=== PATIENT | female | born 1935 | race Caucasian/White ===

== ENCOUNTER 2018-04-22 09:39 | Inpatient (IN) ==
[2018-04-22] MEDS ORDERED: 0.9 % Sodium Chloride 1,000 ML IVC ONE (09:46)
[2018-04-22 09:53] LABS: Hematocrit 43.9 % (35.3-44.9); Hemoglobin 15.2 g/dL (11.5-15.4); Mean Corpuscular HGB Conc 34.6 g/dL (31.6-35.5); Mean Corpuscular Hemoglobin 31.3 pg (28.0-33.3); Mean Corpuscular Volume 90.3 fL (83.0-100.0); Mean Platelet Volume 9.4 fL (9.4-12.4); Platelet Count 289 K/mcL (140-400); Red Blood Count 4.86 M/mcL (3.82-4.97); Red Cell Distribution Width 12.8 % (11.5-14.5)
--- NOTE | 2018-04-22 09:55 | Emergency Department Note ---
Disposition Clinical Impression: Hyponatremia, Seizure-like activity Disposition: Admitted As Inpatient Condition: Fair Time of Disposition: 12:22 General Adult HPI - General Chief complaint: ED Neuro Symptoms/Deficit Stated complaint: poss stroke alert Time Seen by Provider: 04/22/18 09:45 Source: family (Son) Limitations: altered mental status Nursing Notes Reviewed: Yes Vital Signs Reviewed: Yes - History of Present Illness HPI Narrative: 83-year-old female history of hypertension and prior breast cancer in 1972 with left mastectomy presenting to the emergency department after a unresponsive episode. History is obtained by the son who is questioned after initial evaluation. Patient presented to the trauma resuscitation room 2 due to unresponsive with left side flaccid paralysis and only following commands on the right. Stroke alert was initiated at that time. She did not have any gaze deviation. It was noted that she has some urinary incontinence with a laceration to her left lower lip. Within a few minutes she became more lucid moving all for extremities with purpose. She was saying the words couch and was able to answer questions and tell us her name. Her oxygen saturations remain 100%. Her blood pressure was 173/140. After further questioning with the son he reports that she had a fall 2 weeks ago it was here at [facility] for outpatient x-rays of her back with blood work after fasting. They went to [employer] for food while in the car, the son reported that she went unresponsive. This occurred 15 minutes prior to arrival, estimated 0930. He noticed foaming at the mouth and some shaking/tremors. She presents here afterwards. No history of reported seizures or CVA. Pain Scale: 0 - Related Data Home Medications Medication Instructions Recorded Confirmed Aspirin [Lo-Dose Aspirin EC] 81 mg PO DAILY 08/06/16 03/17/17 Levothyroxine [Synthroid] 100 mcg PO DAILY 08/06/16 03/17/17 Lisinopril [Zestril] 20 mg PO BID 08/06/16 03/17/17 Nadolol 20 mg PO DAILY 08/06/16 03/17/17 Nitroglycerin [Nitrostat] 0.4 mg SL PRN PRN 08/06/16 03/17/17 Oxybutynin [Ditropan] 5 mg PO BID 08/06/16 03/17/17 Potassium Chloride [K-Tab ER] 20 meq PO DAILY 08/06/16 03/17/17 Ranitidine HCl [Heartburn Relief] 150 mg PO DAILY 08/06/16 02/21/17 Simvastatin [Zocor] 40 mg PO HS 08/06/16 03/17/17 Sertraline [Zoloft] 50 mg PO DAILY 12/08/16 03/17/17 Calcium Citrate/Vitamin D3 1 each PO DAILY 03/17/17 03/17/17 [Calcium Citrate - Vit D Caplet] Cholecalciferol (Vitamin D3) 5,000 unit PO DAILY 03/17/17 03/17/17 [Vitamin D3] Cyanocobalamin (Vitamin B-12) 1,500 mcg PO DAILY 03/17/17 03/17/17 [Vitamin B-12] Loratadine [Allergy Relief] 10 mg PO DAILY 03/17/17 03/17/17 Pantoprazole Sodium [Protonix] 40 mg PO DAILY 03/17/17 03/17/17 Allergies Allergy/AdvReac Type Severity Reaction Status Date / Time acetaminophen Allergy Rash Verified 03/17/17 16:54 Amoxicillin Allergy Rash Verified 03/17/17 16:54 citalopram [From Celexa] Allergy See Verified 03/17/17 16:54 Comments codeine Allergy Rash Verified 03/17/17 16:54 NSAIDS (Non-Steroidal Allergy Rash Verified 03/17/17 16:54 Anti-Inflamma Oxycodone Allergy Rash Verified 03/17/17 16:54 Penicillins Allergy Hives Verified 03/17/17 16:54 piroxicam Allergy Rash Verified 03/17/17 16:54 propoxyphene Allergy Rash Verified 03/17/17 16:54 [From Darvocet-N] salicylates Allergy Rash Verified 03/17/17 16:54 Limitations: ROS unobtainable due to patients medical condition Past Medical History - Past Medical History Source: old records reviewed, obtained from family Medical history: Reports: cancer, coronary artery disease, diabetes, h yperlipidemia, hypertension, renal disease, seizures, thyroid disease Surgical history: Reports: orthopedic, other, other (Cardiac catheterization November 2013 showing mild coronary artery disease with ejection fraction of 60%.) Psychiatric history: Reports: anxiety, depression - Social History Smoking Status: Unknown if ever smoked Smokeless Tobacco Status: No Alcohol use: Reports: unknown Drug use: Reports: unknown Physical Exam - General Limitations: altered mental status General appearance: other - Head Head exam: atraumatic, normocephalic, normal inspection - Eye Eye exam: Present: normal appearance, PERRL, EOMI, other (No gaze deviation). Absent: nystagmus, miosis, mydriasis - ENT ENT exam: normal oropharynx, mucous membranes dry - Expanded ENT Exam External ear exam: Present: normal external inspection Mouth exam: Present: tongue normal, laceration (Lower lip superficial laceration). Absent: lip swelling, tounge swelling Teeth exam: Present: normal inspection - Neck Neck exam: Present: normal inspection, full ROM, trachea midline - Chest Chest inspection: Present: symmetric chest wall rise, other (Left mastectomy) - Respiratory Respiratory exam: Present: normal lung sounds bilaterally. Absent: respiratory distress - Cardiovascular Cardiovascular exam: Present: regular rate, normal rhythm, normal heart sounds - Expanded Cardiovascular Exam Peripheral pulses: 2+: radial (R), radial (L) - Abdominal Exam Abdominal exam: Present: soft, Non-Tender. Absent: tenderness, distention, guarding, rebound, rigidity - Extremities Exam Extremities exam: Present: other (No obvious deformities, initially there was only movement to the right upper and right lower extremities, there was no visible tonic clonic movements, she follow commands only on the right side initially) - Skin Skin exam: Present: warm, dry, intact, normal color Course Course Narrative: Patient initially presented with left-sided weakness. Initial report was patient was normal prior to arrival they would unresponsive. Concern for possible stroke, stroke alert initiated. Initial glucose was 132. She had urinary incontinence and lower lip laceration. Concern for possible seizure versus stroke. Her initial NIH score was elevated at approximately 25 she was only moving the right side of her body. Patient was then sent to CT scan after blood glucose level checked, EKG and IV access obtained. - Reevaluation(s) Reevaluation #1: Upon return to the emergency department examination room she is now awake alert and oriented person place and time she recognizes her son she moves all for extremities without any obvious drift her NIH score is 0. Suspect likely more seizure versus stroke given the history obtained by the son. She is not a TPA c andidate at this time as she is likely more seizure and rapid resolution of NIH. CT scan of the head did not reveal any intracranial hemorrhage. CT of the neck did not reveal fracture. There is incidental right thyroid nodule. Patient reports a history of thyroid surgery and is currently on Synthroid. She was made aware of this incidental finding. Reevaluation #2: Patient's sodium is 129 this appears chronic however this is the lowest it has been. Labs otherwise unremarkable. She does report a prior history is a seizure like activity but does not take seizure medications. Will bolus with Keppra 1g and discuss with NEUROLOGY for seizure like activity. Time: 12:03 - Consultations Consultation #1: Spoke with Dr. Tellez radiologist, no hemorrhage Time: 10:14 Consultation #2: Spoke with [facility] Dr. Adams, discussed the patient's case presentation and they are in agreement this is likely more of seizure. At this time we have canceled the stroke alert at 1024. Time: 10:21 Consultation #3: Spoke with the on-call neurologist Dr. Santos, who requests obtain a EEG once admitted to the floor and obtaining MRI with and without. Recommended continue 500 mg Keppra BID. Time: 12:10 Additional Consultation(s): Spoke with on-call hospitalist Dr. Chua, ok to admit for new onset seizure and hyponatremia. No further orders at this time Vital Signs Temperature 98.7 F 04/22/18 09:42 Pulse Rate 92 04/22/18 09:42 Respiratory Rate 18 04/22/18 09:42 Blood Pressure 173/137 04/22/18 09:42 O2 Sat by Pulse Oximetry 97 04/22/18 09:42 Temperature 98.7 F 04/22/18 09:42 Pulse Rate 75 04/22/18 11:18 Respiratory Rate 18 04/22/18 11:18 Blood Pressure 153/76 04/22/18 11:18 O2 Sat by Pulse Oximetry 96 04/22/18 11:18 Oxygen Delivery Oxygen Delivery Room Air Medical Decision Making - MDM Narrative Medical decision making narrative: Patient was discussed with my attending physician who agrees with ED management and final disposition. They independently evaluated the patient. Please refer to their attestation to this encounter for additional information. This note was generated by yeppt voice recognition software and as a result grammatical or spelling errors may occur using this program. - Medical Records Medical records reviewed: Yes I reviewed the patient's medical records. - Lab Data Lab results reviewed: Yes I reviewed the patient's lab results. Result diagrams: 04/22/18 09:45 04/22/18 09:45 Lab Results 04/22/18 04/22/18 04/22/18 Range/Units 09:42 09:45 09:45 WBC 9.4 D (4.3-11.1) K/mcL RBC 4.86 (3.82-4.97) M/mcL Hgb 15.2 (11.5-15.4) g/dL Hct 43.9 (35.3-44.9) % MCV 90.3 (83.0-100.0) fL MCH 31.3 (28.0-33.3) pg MCHC 34.6 (31.6-35.5) g/dL RDW 12.8 (11.5-14.5) % Plt Count 289 (140-400) K/mcL MPV 9.4 (9.4-12.4) fL PT 10.9 (9.4-12.1) Seconds INR 1.0 APTT 30.3 (26.0-36.0) Seconds Sodium (136-145) mEq/L Potassium (3.5-5.1) mEq/L Chloride (98-107) mEq/L Carbon Dioxide (23-29) mEq/L BUN (8-23) mg/dL Creatinine (0.60-1.20) mg/dL Est GFR ( Amer) (> 60) Est GFR (Non-Af Amer) (> 60) BUN/Creatinine Ratio (6-26) Glucose (70-105) mg/dL POC Glucose 166 H (70-99) mg/dL Calculated Osmolality (280-300) Calcium (8.6-10.3) mg/dL Venous Ioniz Calcium (1.15-1.35) mmol/L Magnesium (1.6-2.6) mg/dL Troponin I (< 0.04) ng/mL TSH (0.340-5.600) mcIU/mL Urine Color (Yellow) Urine Clarity (Clear) Urine pH (5.0-8.0) pH Units Ur Specific [place] (1.010-1.025) Urine Protein (Neg-Trace) mg/dL Urine Glucose (UA) (Normal) mg/dL Urine Ketones (Negative) mg/dL Urine Blood (Negative) Urine Nitrite (Negative) Urine Bilirubin (Negative) Urine Urobilinogen (Normal) mg/dL Ur Leukocyte Esterase (Negative) Urine Microscopic RBC (0-3) per hpf Urine Microscopic WBC (0-3) per hpf Ur Squamous Epith Cells (None-Few) per lpf Urine Bacteria (None-Few) per hpf Hyaline Casts (None-Few) per lpf Ur Culture Indicated? (NO) 04/22/18 04/22/18 04/22/18 Range/Units 09:45 10:44 11:02 WBC (4.3-11.1) K/mcL RBC (3.82-4.97) M/mcL Hgb (11.5-15.4) g/dL Hct (35.3-44.9) % MCV (83.0-100.0) fL MCH (28.0-33.3) pg MCHC (31.6-35.5) g/dL RDW (11.5-14.5) % Plt Count (140-400) K/mcL MPV (9.4-12.4) fL PT (9.4-12.1) Seconds INR APTT (26.0-36.0) Seconds Sodium 129 L (136-145) mEq/L Potassium 3.8 (3.5-5.1) mEq/L Chloride 94 L (98-107) mEq/L Carbon Dioxide 17 L (23-29) mEq/L BUN 13 (8-23) mg/dL Creatinine 0.95 (0.60-1.20) mg/dL Est GFR ( Amer) > 60 (> 60) Est GFR (Non-Af Amer) 56 L (> 60) BUN/Creatinine Ratio 14 (6-26) Glucose 162 H (70-105) mg/dL POC Glucose (70-99) mg/dL Calculated Osmolality 272 L (280-300) Calcium 9.1 (8.6-10.3) mg/dL Venous Ioniz Calcium 1.05 L (1.15-1.35) mmol/L Magnesium 1.9 (1.6-2.6) mg/dL Troponin I < 0.03 (< 0.04) ng/mL TSH 3.399 (0.340-5.600) mcIU/mL Urine Color Yellow (Yellow) Urine Clarity Clear (Clear) Urine pH 7.5 (5.0-8.0) pH Units Ur Specific [place] 1.008 L (1.010-1.025) Urine Protein 30 H (Neg-Trace) mg/dL Urine Glucose (UA) 100 H (Normal) mg/dL Urine Ketones Negative (Negative) mg/dL Urine Blood Negative (Negative) Urine Nitrite Negative (Negative) Urine Bilirubin Negative (Negative) Urine Urobilinogen Normal (Normal) mg/dL Ur Leukocyte Esterase Negative (Negative) Urine Microscopic RBC 0-3 (0-3) per hpf Urine Microscopic WBC 0-3 (0-3) per hpf Ur Squamous Epith Cells Few (None-Few) per lpf Urine Bacteria None Seen (None-Few) per hpf Hyaline Casts None Seen (None-Few) per lpf Ur Culture Indicated? NO (NO) - Radiology Data Radiology results reviewed: Yes I reviewed the patient's radiology results. Head CTA 04/22/18 10:13 IMPRESSION: Mild, less than 50%, stenosis of the internal carotid arteries by NASCET criteria. No intracranial flow-limiting stenosis or aneurysm. Consider thyroid for evaluation if clinically warranted, a patient's age. RECOMMENDATIONS: 1.6 cm incidental thyroid nodule Recommend thyroid US if clinically warranted given patient age. Reference: J Am Trung Radiol. 2014;12(2): 143-50 D/ /22/2018 11:53:40 Sudheer Ascencio MD / ana m Interpreting Provider: Sudheer Ascencio MD Neck CTA 04/22/18 10:13 IMPRESSION: Mild, less than 50%, stenosis of the internal carotid arteries by NASCET criteria. No intracranial flow-limiting stenosis or aneurysm. Consider thyroid for evaluation if clinically warranted, a patient's age. RECOMMENDATIONS: 1.6 cm incidental thyroid nodule Recommend thyroid US if clinically warranted given patient age. Reference: J Am Trung Radiol. 2014;12(2): 143-50 D/ 04/22/2018 11:53:40 Sudheer Ascencio MD / ana m Interpreting Provider: Sudheer Ascencio MD Chest X-Ray 04/22/18 09:46 IMPRESSION: Bibasilar atelectasis. D/ / Yelena Ascencio MD / Yelena Ascencio MD Interpreting Provider: Yelena Ascencio MD Head CT 04/22/18 09:46 IMPRESSION: No acute intracranial abnormality. Moderate cerebral atrophy appropriate for age. [id number] chronic ischemic changes also age-appropriate. No significant change from the prior study. D/ / Ermias Jurado MD / Ermias Jurado MD Interpreting Provider: Ermias Jurado MD Cervical Spine CT 04/22/18 09:47 IMPRESSION: No acute abnormality of the cervical spine. Multilevel degenerative changes to the cervical spine. Diffuse bone demineralization. Right thyroid nodule measuring 1.8 x 1.5 cm. Recommend ultrasound evaluation on a nonemergent basis. D/ / 04/22/2018 10:37:39 Ham Babb MD / ana m Interpreting Provider: Ham Babb MD - EKG Data EKG #1 EKG attestation: Yes I reviewed and interpreted this EKG. EKG results narrative: EKG performed 0948 normal sinus rhythm 91 beats per minute, normal axis, good R wave progression, no ST elevation or depression, NH interval appears slightly vomited 215, no drop beats, inverted T-wave in a VL, compared to prior EKG performed 03/17/2017 shows similar consistent findings no acute ischemic changes. Attestation Statement - Attestation Attestation: I, Chandrakant Doshi DO, examined this patient [id number] and my medical dec ision-making was reviewed with Ham Delacruz DO Resident Physician. I agree with the documented findings, disposition and treatment plan as described except to the extent set forth below. Please see my progress notes for details. NIH Stroke Scale - Level of Consciousness LOC: Stuporous - LOC Questions LOC Questions: Answers both incorrectly - LOC Commands LOC Commands: Performs both incorrectly - Best Gaze Best Gaze: Normal - Visual Visual: No visual loss - Facial Palsy Facial Palsy: Normal - Motor Arms Motor Arm-Left: No movement Motor Arm-Right: Some effort against gravity, limb drifts to bed - Motor Legs Motor Leg-Left: Some effort against gravity, limb drifts to bed Motor Leg-Right: No movement - Limb Ataxia Limb Ataxia: Absent of affected limb too weak to perform exam - Sensory Sensory: Severe loss. Total sensory loss, pt unaware of being touched - Best Language Best Language: Mute, no usable speech - Dysarthria Dysarthria: UN Intubated or other physical barrier (explain) (Patient unresponsive) - Extinction and Inattention Extinction and Inattention: Profound anthony-inattention or anthony-attention in >ONE modality. - NIHSS Total Score NIHSS Total Score: 25
[2018-04-22 10:02] LABS: Prothrombin Time 10.9 Seconds (9.4-12.1)
[2018-04-22 10:04] LABS: Activated Partial Thrombo Time 30.3 Seconds (26.0-36.0)
[2018-04-22 10:12] LABS: BUN/Creatinine Ratio 14 (6-26); Blood Urea Nitrogen 13 mg/dL (8-23); Calcium 9.1 mg/dL (8.6-10.3); Carbon Dioxide 17 mEq/L (23-29); Chloride 94 mEq/L (98-107); Glucose 162 mg/dL (70-105); Magnesium 1.9 mg/dL (1.6-2.6); Osmolality,Calculated 272 (280-300); Potassium 3.8 mEq/L (3.5-5.1); Sodium 129 mEq/L (136-145); Troponin I < 0.03 ng/mL (< 0.04); eGFR For Non-African Americans 56 (> 60)
[2018-04-22] MEDS ORDERED: Isovue-370 500 ML INFUS..BTL IV ONE (10:13)
--- NOTE | 2018-04-22 10:15 | Emergency Department Note ---
Disposition Clinical Impression: Hyponatremia, Seizure-like activity Disposition: Admitted As Inpatient Condition: Fair Time of Disposition: 12:32 General Adult HPI - General Chief complaint: ED Neuro Symptoms/Deficit Stated complaint: poss stroke alert Time Seen by Provider: 04/22/18 09:45 Source: family (Son) Limitations: altered mental status - History of Present Illness Pain Scale: 0 - Related Data Home Medications Medication Instructions Recorded Confirmed Aspirin [Lo-Dose Aspirin EC] 81 mg PO DAILY 08/06/16 03/17/17 Levothyroxine [Synthroid] 100 mcg PO DAILY 08/06/16 03/17/17 Lisinopril [Zestril] 20 mg PO BID 08/06/16 03/17/17 Nadolol 20 mg PO DAILY 08/06/16 03/17/17 Nitroglycerin [Nitrostat] 0.4 mg SL PRN PRN 08/06/16 03/17/17 Oxybutynin [Ditropan] 5 mg PO BID 08/06/16 03/17/17 Potassium Chloride [K-Tab ER] 20 meq PO DAILY 08/06/16 03/17/17 Ranitidine HCl [Heartburn Relief] 150 mg PO DAILY 08/06/16 02/21/17 Simvastatin [Zocor] 40 mg PO HS 08/06/16 03/17/17 Sertraline [Zoloft] 50 mg PO DAILY 12/08/16 03/17/17 Calcium Citrate/Vitamin D3 1 each PO DAILY 03/17/17 03/17/17 [Calcium Citrate - Vit D Caplet] Cholecalciferol (Vitamin D3) 5,000 unit PO DAILY 03/17/17 03/17/17 [Vitamin D3] Cyanocobalamin (Vitamin B-12) 1,500 mcg PO DAILY 03/17/17 03/17/17 [Vitamin B-12] Loratadine [Allergy Relief] 10 mg PO DAILY 03/17/17 03/17/17 Pantoprazole Sodium [Protonix] 40 mg PO DAILY 03/17/17 03/17/17 Allergies Allergy/AdvReac Type Severity Reaction Status Date / Time acetaminophen Allergy Rash Verified 03/17/17 16:54 Amoxicillin Allergy Rash Verified 03/17/17 16:54 citalopram [From Celexa] Allergy See Verified 03/17/17 16:54 Comments codeine Allergy Rash Verified 03/17/17 16:54 NSAIDS (Non-Steroidal Allergy Rash Verified 03/17/17 16:54 Anti-Inflamma Oxycodone Allergy Rash Verified 03/17/17 16:54 Penicillins Allergy Hives Verified 03/17/17 16:54 piroxicam Allergy Rash Verified 03/17/17 16:54 propoxyphene Allergy Rash Verified 03/17/17 16:54 [From Darvocet-N] salicylates Allergy Rash Verified 03/17/17 16:54 Past Medical History - Past Medical History Medical history: Reports: cancer, coronary artery disease, diabetes, hyperlipidemia, hypertension, renal disease, seizures, thyroid disease Surgical history: Reports: orthopedic, other, other (Cardiac catheterization November 2013 showing mild coronary artery disease with ejection fraction of 60%.) Psychiatric history: Reports: anxiety, depression - Social History Smoking Status: Unknown if ever smoked Smokeless Tobacco Status: No Alcohol use: Reports: unknown Drug use: Reports: unknown Physical Exam - General Limitations: altered mental status General appearance: other Course Vital Signs Temperature 98.7 F 04/22/18 09:42 Pulse Rate 92 04/22/18 09:42 Respiratory Rate 18 04/22/18 09:42 Blood Pressure 173/137 04/22/18 09:42 O2 Sat by Pulse Oximetry 97 04/22/18 09:42 Temperature 98.7 F 04/22/18 09:42 Pulse Rate 75 04/22/18 11:18 Respiratory Rate 18 04/22/18 11:18 Blood Pressure 153/76 04/22/18 11:18 O2 Sat by Pulse Oximetry 96 04/22/18 11:18 Oxygen Delivery Oxygen Delivery Room Air Medical Decision Making - Lab Data Result diagrams: 04/22/18 09:45 04/22/18 09:45 Lab Results 04/22/18 04/22/18 04/22/18 Range/Units 09:42 09:45 09:45 WBC 9.4 D (4.3-11.1) K/mcL RBC 4.86 (3.82-4.97) M/mcL Hgb 15.2 (11.5-15.4) g/dL Hct 43.9 (35.3-44.9) % MCV 90.3 (83.0-100.0) fL MCH 31.3 (28.0-33.3) pg MCHC 34.6 (31.6-35.5) g/dL RDW 12.8 (11.5-14.5) % Plt Count 289 (140-400) K/mcL MPV 9.4 (9.4-12.4) fL PT 10.9 (9.4-12.1) Seconds INR 1.0 APTT 30.3 (26.0-36.0) Seconds Sodium (136-145) mEq/L Potassium (3.5-5.1) mEq/L Chloride (98-107) mEq/L Carbon Dioxide (23-29) mEq/L BUN (8-23) mg/dL Creatinine (0.60-1.20) mg/dL Est GFR ( Amer) (> 60) Est GFR (Non-Af Amer) (> 60) BUN/Creatinine Ratio (6-26) Glucose (70-105) mg/dL POC Glucose 166 H (70-99) mg/dL Calculated Osmolality (280-300) Calcium (8.6-10.3) mg/dL Venous Ioniz Calcium (1.15-1.35) mmol/L Magnesium (1.6-2.6) mg/dL Troponin I (< 0.04) ng/mL TSH (0.340-5.600) mcIU/mL Urine Color (Yellow) Urine Clarity (Clear) Urine pH (5.0-8.0) pH Units Ur Specific [place] (1.010-1.025) Urine Protein (Neg-Trace) mg/dL Urine Glucose (UA) (Normal) mg/dL Urine Ketones (Negative) mg/dL Urine Blood (Negative) Urine Nitrite (Negative) Urine Bilirubin (Negative) Urine Urobilinogen (Normal) mg/dL Ur Leukocyte Esterase (Negative) Urine Microscopic RBC (0-3) per hpf Urine Microscopic WBC (0-3) per hpf Ur Squamous Epith Cells (None-Few) per lpf Urine Bacteria (None-Few) per hpf Hyaline Casts (None-Few) per lpf Ur Culture Indicated? (NO) 04/22/18 04/22/18 04/22/18 Range/Units 09:45 10:44 11:02 WBC (4.3-11.1) K/mcL RBC (3.82-4.97) M/mcL Hgb (11.5-15.4) g/dL Hct (35.3-44.9) % MCV (83.0-100.0) fL MCH (28.0-33.3) pg MCHC (31.6-35.5) g/dL RDW (11.5-14.5) % Plt Count (140-400) K/mcL MPV (9.4-12.4) fL PT (9.4-12.1) Seconds INR APTT (26.0-36.0) Seconds Sodium 129 L (136-145) mEq/L Potassium 3.8 (3.5-5.1) mEq/L Chloride 94 L (98-107) mEq/L Carbon Dioxide 17 L (23-29) mEq/L BUN 13 (8-23) mg/dL Creatinine 0.95 (0.60-1.20) mg/dL Est GFR ( Amer) > 60 (> 60) Est GFR (Non-Af Amer) 56 L (> 60) BUN/Creatinine Ratio 14 (6-26) Glucose 162 H (70-105) mg/dL POC Glucose (70-99) mg/dL Calculated Osmolality 272 L (280-300) Calcium 9.1 (8.6-10.3) mg/dL Venous Ioniz Calcium 1.05 L (1.15-1.35) mmol/L Magnesium 1.9 (1.6-2.6) mg/dL Troponin I < 0.03 (< 0.04) ng/mL TSH 3.399 (0.340-5.600) mcIU/mL Urine Color Yellow (Yellow) Urine Clarity Clear (Clear) Urine pH 7.5 (5.0-8.0) pH Units Ur Specific [place] 1.008 L (1.010-1.025) Urine Protein 30 H (Neg-Trace) mg/dL Urine Glucose (UA) 100 H (Normal) mg/dL Urine Ketones Negative (Negative) mg/dL Urine Blood Negative (Negative) Urine Nitrite Negative (Negative) Urine Bilirubin Negative (Negative) Urine Urobilinogen Normal (Normal) mg/dL Ur Leukocyte Esterase Negative (Negative) Urine Microscopic RBC 0-3 (0-3) per hpf Urine Microscopic WBC 0-3 (0-3) per hpf Ur Squamous Epith Cells Few (None-Few) per lpf Urine Bacteria None Seen (None-Few) per hpf Hyaline Casts None Seen (None-Few) per lpf Ur Culture Indicated? NO (NO) Attestation Statement - Attestation Attestation: I, Chandrakant Doshi DO, examined this patient [id number] and my medical decision-making was reviewed with Ham Delacruz DO , Resident Physician. I agree with the documented findings, disposition and treatment plan as described except to the extent set forth below. Please see my progress notes for details. Patient presented by personal vehicle. 83-year-old female presents to the emergency room for altered mentation tremors and frothing at the mouth. Patient was getting out patient labs this morning. She is fasting. They have completed the labs. Son was with her the entire time. They provided her with the Tylenol and then she was going to [employer] to get food because she had not eaten. During that time frame the patient went unresponsive and started tremoring. She did bite her lip. On arrival here to the emergency room the patient was somnolent. She will fall commands with the right side of her body but left side did not move on initial presentation. Patient did describe pain when deep palpation was applied to her lower extremities and hands and she did retractor arms at that time. The patient was somnolent but protecting her airway. Her initial vital signs were stable and her Accu-Chek was 166. Stroke alert was ca lled immediately secondary to the presentation. There is still some concern for possible seizure like activity. Patient did have a left-sided mastectomy completed. Could be metastases versus a lecture light abnormalities as well. Full differential will be addressed as well as stroke evaluation to be completed. Son is with her and described his symptoms as above. She has not had any change in medication, recent fevers. She was not describing any symptoms. She is going to get outpatient labs and imaging completed today secondary to a fall 2 weeks ago. Patient is otherwise stable vital sign tolbert. Workup to be completed at this time. Initial NIH is elevated will be documented secondary to left-sided weakness but is subjectively secondary to the patient moving extremities due to pain. No other acute initial traumatic related etiology noted. Patient did not fall based on the descriptions from the son. Cervical spine imaging was added on prior to our conversations with the son. Detailed workup to be completed in the stroke evaluation will be established. Labs were stroke evaluation to be added on as well as magnesium ionized calcium and thyroid function secondary to the possible seizure like activity. Patient has no history of seizures. In the sun disclose that she did have her mastectomy completed 1974. Disposition will most likely be admission to better upon the findings during the CT scan. CT angiography of the head and neck will be discussed once imaging modalities are resulted. See detailed documentation of the physical exam, medical intervention, medical decision-making and disposition in the resident physician's note. No critical care applied to the patient's treatment course at this time. 1015 Son was at the bedside with me and the patient is now following commands. Her NIH scale is 0 at this time. Symptoms do appear to be more consistent with a seizure like activity. The etiology will be explored at this time. [facility] neurology will be contacted just to let them know the findings as well as a progression the symptoms and resolution of the symptoms here this time. Dr. Oropeza review the case in the stroke alert will be canceled at this time. Labs will be reviewed and admission process will be completed. CT angiography of the head and neck will be added on as well to make sure that there is no other acute etiology. Stroke alert is canceled that 1024 hours with conversations with [facility]. After reviewing the chart patient does have a history of seizures based on a conversation but is not on any medications. She did have incontinence and did bite her tongue or mouth. Patient will be loaded with Keppra here in the emergency room and the continuation of the imaging will be completed. Neurology will be contacted regarding facility and the patient will end up being admitted. 1215 Hospitalist was contacted. As well as neurology. Neurology recommended MRI with and without contrast of the head and the neck. These will be ordered in the inpatient setting. Patient was articulate Keppra. Patient will be admitted for continuation of care. No other acute concerns or issues no this time. Family and the patient were both informed. We will continue to monitor here in the emergency room until admission process is completed.
[2018-04-22] MEDS ORDERED: levETIRAcetam 1,000 MG in 0.9 % Sodium Chloride 100 ML IVPB ONE (10:25)
[2018-04-22 10:26] LABS: Thyroid Stimulating Hormone 3.399 mcIU/mL (0.340-5.600)
[2018-04-22 10:47] LABS: VBG Ionized Calcium 1.05 mmol/L (1.15-1.35)
[2018-04-22 11:45] LABS: Bilirubin,Urine Negative (Negative); Blood,Urine Negative (Negative); Clarity,Urine Clear (Clear); Color,Urine Yellow (Yellow); Glucose,Urine (UA) 100 mg/dL (Normal); Ketones,Urine Negative (Negative); Leukocyte Esterase,Urine Negative (Negative); Nitrite,Urine Negative (Negative); PH,Urine 7.5 pH Units (5.0-8.0); Protein,Urine 30 mg/dL (Neg-Trace); Specific Gravity,Urine 1.008 (1.010-1.025); Urobilinogen,Urine Normal (Normal)
[2018-04-22 11:47] LABS: Bacteria,Urine None Seen per hpf (None-Few); Hyaline Casts,Urine None Seen per lpf (None-Few); RBC,Urine 0-3 per hpf (0-3); Squamous Epithelial Cell,Urine Few per lpf (None-Few); WBC,Urine 0-3 per hpf (0-3)
[2018-04-22] MEDS ORDERED: Gadolinium Contrast Agent (WT Based) IV PRN (12:11)
--- NOTE | 2018-04-22 12:17 | Neurology - Consult Note ---
<Jake Laboy - Last Filed: 04/22/18 13:52> Date of Encounter: 04/22/18 Time of Encounter: 12:16 Assessment and Plan (1) Seizure-like activity Current Visit: Yes Status: Acute Patient with witnessed episode of entire body stiffness/tremors, tongue trauma, and urinary incontinence prior to arrival. CT head revealed moderate cerebral atrophy appropriate for age. [id number] chronic ischemic changes also age-appropriate. CTA head/neck revealed mild, less than 50%, stenosis of the internal carotid arteries by NASCET criteria. No intracranial flow-limiting stenosis or aneurysm. Patient had similar seizure-like episode in December 2016 but denies taking any anti-epileptic therapy. Patient was given a loading dose of Keppra in the ED Continue Keppra 500 mg PO twice a day MRI brain w/wo contrast pending, give gentle hydration secondary to CKD EEG pending Seizure precautions (2) Hyponatremia Current Visit: Yes Status: Chronic Management per primary team. Avoid rapid over correction greater than 8 mEq per day to prevent osmotic demyelination syndrome (3) HTN (hypertension) Current Visit: No Status: Chronic Qualifiers: Hypertension type: essential hypertension Qualified Code(s): I10 - Essential (primary) hypertension (4) HLD (hyperlipidemia) Current Visit: No Status: Chronic Qualifiers: Hyperlipidemia type: unspecified Qualified Code(s): E78.5 - Hyperlipidemia, unspecified (5) Hypothyroidism Current Visit: No Status: Chronic Qualifiers: Hypothyroidism type: unspecified Qualified Code(s): E03.9 - Hypothyroidism, unspecified (6) CKD (chronic kidney disease), stage III Current Visit: No Status: Chronic (7) Hypokalemia Current Visit: Yes Status: Acute (8) DVT prophylaxis Current Visit: Yes Status: Acute History of Present Illness Chief complaint: Seizure HPI: Ms. Rivera is a 83 year old female with a past medical history of hypertension, hyperlipidemia, CKD stage III, hypothyroidism, and glucose intolerance who presented to the ED secondary to seizure activity prior to arrival. Of note, patient reports ongoing difficulty standing or moving since she tripped and fell on 04/09/18. She fell backwards and landed in sitting position but did not seek treatment at that time. Patient denies any head trauma or loss of consciousness. Patient was evaluated by her PCP this morning who ordered lab work and imaging studies. Shortly after leaving the hospital this morning, she was on her way to [facility] with her son because she did not eat breakfast this morning. She took Tylenol for headache and about 5 minutes later she became very stiff for several minutes according to her son and started foaming at the mouth. Patient was brought back to the hospital and evaluated in the emergency department. Patient does not recall this episode and has some residual confusion after this. Patient also had episode of urinary incontinence and abrasion to the left side of her tongue. Fingerstick blood glucose level was 166. Patient had similar seizure-like episode in December 2016 but denies taking any anti- epileptic therapy. Son is at bedside. Past Med Surg Social Fam HX - Past Medical History Medical history: cancer, coronary artery disease, diabetes, hyperlipidemia, hypertension, renal disease (CKD 3), seizures, thyroid disease Additional medical history: breast cancer Psychiatric history: anxiety, depression - Past Surgical History Surgical History: orthopedic, other, other (Cardiac catheterization November 2013 showing mild coronary artery disease with ejection fraction of 60%.) Additional surgical history: left side radical mastectomy, bone surgery. total right knee replaced. parathyroidectomy - Social History Smoking Status: Unknown if ever smoked Smokeless Tobacco Status: No Alcohol use: unknown Drug use: unknown Occupational status: retired Current living situation: With Family - Family History Mother Living Status: Age at : 76 Hx Family Cancer: Yes (Kidney) Father Living Status: Age at : 94 Hx Family Cardiac Disorders: Yes ([place]) Hx Family Respiratory Disorders: Yes (COPD) Medications and Allergies Aspirin [Lo-Dose Aspirin EC] 81 mg PO DAILY 08/06/16 [History] Levothyroxine [Synthroid] 100 mcg PO DAILY 08/06/16 [History] Lisinopril [Zestril] 20 mg PO BID 08/06/16 [History] Nitroglycerin [Nitrostat] 0.4 mg SL Q5MIN PRN 08/06/16 [History] Oxybutynin [Ditropan] 5 mg PO BID 08/06/16 [History] Potassium Chloride [K-Tab ER] 20 meq PO DAILY 08/06/16 [History] Simvastatin [Zocor] 40 mg PO HS 08/06/16 [History] Sertraline [Zoloft] 25 mg PO DAILY 12/08/16 [History] Calcium Citrate/Vitamin D3 [Calcium Citrate - Vit D Caplet] 1 each PO DAILY [History] Cyanocobalamin (Vitamin B-12) [Vitamin B-12] 1,500 mcg PO SUTUTH 03/17/17 [History] Loratadine [Allergy Relief] 10 mg PO DAILY 03/17/17 [History] Acetaminophen [Pain Reliever] 500 - 1,000 mg PO Q6H PRN 04/22/18 [History] Amlodipine Besylate 5 mg PO DAILY 04/22/18 [History] Cranberry Fruit Extract [Cranberry] 500 mg PO DAILY 04/22/18 [History] Ergocalciferol (VITAMIN D2) [Vitamin D] 400 unit PO DAILY 04/22/18 [History] Nadolol [Corgard] 20 mg PO DAILY 04/22/18 [History] Allergy/AdvReac Type Severity Reaction Status Date / Time acetaminophen Allergy Rash Verified 03/17/17 16:54 Amoxicillin Allergy Rash Verified 03/17/17 16:54 citalopram [From Celexa] Allergy See Verified 03/17/17 16:54 Comments codeine Allergy Rash Verified 03/17/17 16:54 NSAIDS (Non-Steroidal Allergy Rash Verified 03/17/17 16:54 Anti-Inflamma Oxycodone Allergy Rash Verified 03/17/17 16:54 Penicillins Allergy Hives Verified 03/17/17 16:54 piroxicam Allergy Rash Verified 03/17/17 16:54 propoxyphene Allergy Rash Verified 03/17/17 16:54 [From Darvocet-N] salicylates Allergy Rash Verified 03/17/17 16:54 All Systems: The remainder of the systems were reviewed and are negative - Constitutional Constitutional ROS IM: headache(s), lethargy, malaise, weakness - Nose, Mouth, Throat Nose, mouth and throat: headache(s), mouth lesions, no bleeding gums, no dry mouth - Cardiovascular Cardiovascular ROS IM: no chest pain, no dyspnea, no edema, no irregular heart rhythm, no leg edema, no lightheadedness - Respiratory Respiratory IM: no cough, no dyspnea - Gastrointestinal Gastrointestinal: constipation, no abdominal pain, no nausea, no vomiting - Genitourinary Genitourinary ROS: urinary incontinence, no dysuria, no flank pain - Musculoskeletal Musculoskeletal ROS IM: arthralgias, back pain, limited range of motion, muscle weakness, myalgias, stiffness - Integumentary Integumentary IM: skin ulcer, no erythema, no new lesions - Neurological Neurological ROS: abnormal movements, confusion, convulsions, headache(s), weakness, no memory loss, no paresthesias, no sensory deficit, no syncope, no tremor(s) - Psychiatric Psychiatric general PM: no anxiety, no depression - Endocrine Endocrine IM: polyuria - Hematologic/Lymphatic Hematologic/Lymphatic pediatric: no easy bleeding, no easy bruising Physical Examination - Vital Signs Vital Signs: Initial Vital Signs Temp Pulse Resp BP Pulse Ox 98.7 F 92 18 173/137 97 04/22/18 09:42 04/22/18 09:42 04/22/18 09:42 04/22/18 09:42 04/22/18 09:42 - Exam Exam: HEENT: NC/ AT, dry mucous membranes, mild amount of dry blood on lips, small a brasion left tongue, no carotid bruits CV: RRR, no M/R/G, no pedal edema RESP: CTAB, normal effort GI: abd/soft, NT, + BS SKIN: no lacerations, warm and dry PSYCH: normal mood, normal affect - Constitutional General appearance: uncomfortable (resting in bed, appears weak) - Neurologic Sensorimotor examination: intact Detailed motor examination: grossly full strength in all extremities Motor examination - left side: 4/5: biceps, hip flexors Detailed sensory examination: intact, light touch Reflex and gait examination: intact Reflexes: Biceps: 2+, Patella: 2+, Achilles: 2+ Mental Status Examination: awake, oriented to person, oriented to place, oriented to time, follows commands appropriately, answers questions appropriately, makes eye contact, follows simple commands Cranial nerve examination: PERRL, EOMI, tongue protrudes midline Cerebellar examination: no dysmetria Results - Laboratory Findings CBC and BMP: 04/22/18 09:45 04/22/18 09:45 Abnormal lab findings: Abnormal lab results Sodium 129 mEq/L (136-145) L 04/22/18 09:45 Chloride 94 mEq/L (98-107) L 04/22/18 09:45 Carbon Dioxide 17 mEq/L (23-29) L 04/22/18 09:45 Est GFR (Non-Af Amer) 56 (> 60) L 04/22/18 09:45 Glucose 162 mg/dL (70-105) H 04/22/18 09:45 POC Glucose 166 mg/dL (70-99) H 04/22/18 09:42 Calculated Osmolality 272 (280-300) L 04/22/18 09:45 Venous Ioniz Calcium 1.05 mmol/L (1.15-1.35) L 04/22/18 10:44 Ur Specific [place] 1.008 (1.010-1.025) L 04/22/18 11:02 Urine Protein 30 mg/dL (Neg-Trace) H 04/22/18 11:02 Urine Glucose (UA) 100 mg/dL (Normal) H 04/22/18 11:02 Consult Discharge Plan - Plan Referrals: Aleksandr Hernandez, [Primary Care Provider] - <Romie Satnos - Last Filed: 04/22/18 18:11> Date of Encounter: 04/22/18 Time of Encounter: 18:07 Assessment and Plan (1) Seizure-like activity Current Visit: Yes Status: Acute I suspect that we are in fact dealing with new-onset epilepsy. This is a second episode of altered consciousness that she is experienced. I am not able to identify an obvious symptomatic etiology to explain this. Electrolytes were normal, vital signs are not extraordinarily out of the norm. She was hypertensive upon admission however I am not convinced that her blood pressure was elevated enough to cause a seizure. Labs were essentially normal. I did review the EEG which was normal. There is no evidence of seizure activity. MRI scan of the brain is pending. I agree with starting Keppra 500 mg twice a day and maintaining this dose for now. Further recommendations will be made pending the MRI result. History of Present Illness HPI: The chart was reviewed, the patient was seen and examined independently. The ca se was discussed with the neurology resident. I agree with his interpretation as stated above. I did review the CT scan of the brain personally. There is a significant amount of cortical atrophy present. Patient is alert and oriented now unable to give her own history. All Systems: The remainder of the systems were reviewed and are negative Review of Systems: The balance of the systems review is negative. Physical Examination - Vital Signs Vital Signs: Initial Vital Signs Temp Pulse Resp BP Pulse Ox 98.7 F 92 18 173/137 97 04/22/18 09:42 04/22/18 09:42 04/22/18 09:42 04/22/18 09:42 04/22/18 09:42 - Exam Exam: I did not listen for carotid bruits nor did I listen to the lungs. - Neurologic Detailed motor examination: full strength in all major muscle groups Motor examination - right side: 10/06: deltoids, biceps, triceps, wrist flexion, wrist extension, oncology transplant network manager, hip flexors, tibialis Anterior, quadriceps, toe extension (EHL), plantarflexion Motor examination - left side: 10/06: deltoids, biceps, triceps, wrist flexion, wrist extension, hip flexors, oncology transplant network manager, quadriceps, tibialis Anterior, toe extension (EHL), plantarflexion Mental Status Examination: awake, alert, oriented to person, oriented to place, oriented to time, follows commands appropriately, answers questions appropriately, no agnosia, no aphasia, no aproxia Cranial nerve examination: PERRL, EOMI, visual babcock intact, corneal reflexes brisk symmetrically, sensory to face intact, mastication intact, no facial asymmetry is present, no dysarthria, hearing is intact symmetrically, soft palate elevates bilaterally upon phonation, gag reflex intact, flexes SCM and trapezius muscles symmetrically with full power, tongue protrudes midline, no atrophy or facial fasiculations present Cerebellar examination: no dysmetria, performs finger to nose and heel to [place] symmetrically without ataxia, no gait ataxia, no truncal ataxia, no difficulty with rapid alternating movements Results - Laboratory Findings CBC and BMP: 04/22/18 09:45 04/22/18 15:05 Abnormal lab findings: Abnormal lab results Sodium 132 mEq/L (136-145) L 04/22/18 15:05 Potassium 3.3 mEq/L (3.5-5.1) L 04/22/18 15:05 Carbon Dioxide 20 mEq/L (23-29) L 04/22/18 15:05 Glucose 112 mg/dL (70-105) H 04/22/18 15:05 POC Glucose 166 mg/dL (70-99) H 04/22/18 09:42 Calculated Osmolality 275 (280-300) L 04/22/18 15:05 Venous Ioniz Calcium 1.05 mmol/L (1.15-1.35) L 04/22/18 10:44 Ur Specific [place] 1.008 (1.010-1.025) L 04/22/18 11:02 Urine Protein 30 mg/dL (Neg-Trace) H 04/22/18 11:02 Urine Glucose (UA) 100 mg/dL (Normal) H 04/22/18 11:02
[2018-04-22] MEDS ORDERED: Naloxone 0.4 MG/ML INJ IVP PRN (14:34)
--- NOTE | 2018-04-22 15:26 | Internal Med History&Physical ---
<Naun Wheeler W - Last Filed: 04/22/18 15:22> Date of Encounter: 04/22/18 Time of Encounter: 15:23 Internal Medicine - H&P: HPI Chief complaint: 83 year old female presents with seizure-like symptoms Admitted From: Emergency Dept Plans for Post Hospital Care: Home History of present illness: Ms. Rivera is a 83 year old female who presents from the ED with seizure-like symptoms. She was a passenger in the car with her son driving when she began having seizure symptoms (lip biting, sustained muscle contraction, foaming at the mouth, urinary incontinence), per her son. She states she does not remember anything about this event, and denies any blurry vision or vision changes, any fevers, coughing or dyspnea, N/V, diarrhea, weakness, chest pain, palpitations, or confusion. She is currently alert and oriented, knowing her name and where she is currently at. She potentially had a prior seizure in 2016 from a UTI, and has a negative family history of seizures. She has not had any recent illnesses, she she denies any recent coughs, fevers, and SOB. She denies smoking, alcohol use, and illicit drug use. She is DNR-CCA-DNI. Head CT and CTA unremarkable for any acute intracranial process. Cervical spine CT was unremarkable. Both cervical spine CT and neck CTA demonstrated R thyroid nodule. EEG and MRI results pending, and CK pending. Stroke protocol was performed and telemedicine from [facility] stated it does not appear she had a stroke, but more likely a seizure. Her son also states she fell 2 weeks ago, hitting her sacrum but not her head, and her PCP ordered imaging with the results still pending. Past Med Surg Social Fam HX - Past Medical History Attestation: Yes The following information was validated with the patient. Source: patient, obtained from family Medical history: cancer, coronary artery disease, diabetes, hyperlipidemia, hypertension, renal disease (CKD 3), seizures, thyroid disease Additional medical history: breast cancer Psychiatric history: anxiety, depression - Past Surgical History Surgical History: orthopedic, other, other (Cardiac catheterization November 2013 sh owing mild coronary artery disease with ejection fraction of 60%.) Additional surgical history: left side radical mastectomy, bone surgery. total right knee replaced. parathyroidectomy - Social History Smoking Status: Never smoker Smokeless Tobacco Status: No Alcohol use: none Drug use: none - Family History Mother Living Status: Age at : 76 Hx Family Cancer: Yes (Kidney) Father Living Status: Age at : 94 Hx Family Cardiac Disorders: Yes (ND) Hx Family Respiratory Disorders: Yes (COPD) Internal Medicine - H&P: Meds Aspirin [Lo-Dose Aspirin EC] 81 mg PO DAILY 08/06/16 [History] Levothyroxine [Synthroid] 100 mcg PO DAILY 08/06/16 [History] Lisinopril [Zestril] 20 mg PO BID 08/06/16 [History] Nitroglycerin [Nitrostat] 0.4 mg SL Q5MIN PRN 08/06/16 [History] Oxybutynin [Ditropan] 5 mg PO BID 08/06/16 [History] Potassium Chloride [K-Tab ER] 20 meq PO DAILY 08/06/16 [History] Simvastatin [Zocor] 40 mg PO HS 08/06/16 [History] Sertraline [Zoloft] 25 mg PO DAILY 12/08/16 [History] Calcium Citrate/Vitamin D3 [Calcium Citrate - Vit D Caplet] 1 each PO DAILY 03/17/17 [History] Cyanocobalamin (Vitamin B-12) [Vitamin B-12] 1,500 mcg PO SUTUTH 03/17/17 [History] Loratadine [Allergy Relief] 10 mg PO DAILY 03/17/17 [History] Acetaminophen [Pain Reliever] 500 - 1,000 mg PO Q6H PRN 04/22/18 [History] Amlodipine Besylate 5 mg PO DAILY 04/22/18 [History] Cranberry Fruit Extract [Cranberry] 500 mg PO DAILY 04/22/18 [History] Ergocalciferol (VITAMIN D2) [Vitamin D] 400 unit PO DAILY 04/22/18 [History] Nadolol [Corgard] 20 mg PO DAILY 04/22/18 [History] Allergy/AdvReac Type Severity Reaction Status Date / Time acetaminophen Allergy Rash Verified 03/17/17 16:54 Amoxicillin Allergy Rash Verified 03/17/17 16:54 citalopram [From Celexa] Allergy See Verified 03/17/17 16:54 Comments codeine Allergy Rash Verified 03/17/17 16:54 NSAIDS (Non-Steroidal Allergy Rash Verified 03/17/17 16:54 Anti-Inflamma Oxycodone Allergy Rash Verified 03/17/17 16:54 Penicillins Allergy Hives Verified 03/17/17 16:54 piroxicam Allergy Rash Verified 03/17/17 16:54 propoxyphene Allergy Rash Verified 03/17/17 16:54 [From Darvocet-N] salicylates Allergy Rash Verified 03/17/17 16:54 All Systems PM: A 10-system review of systems was performed and is negative for pertinent findings except as documented above in the HPI. - Constitutional Constitutional: no fever(s), no weakness - EENT Eyes: no blurry vision, no change in vision Nose, mouth and throat: other (lip biting, foaming at mouth) - Cardiovascular Cardiovascular ROS IM: no chest pain, no edema, no palpitations - Respiratory Respiratory: no cough, no dyspnea, no wheezing - Gastrointestinal Gastrointestinal: no change in bowel habits, no diarrhea, no nausea, no vomiting - Genitourinary Genitourinary: no difficulty urinating, no dysuria - Musculoskeletal Musculoskeletal ROS IM: arthralgias, back pain - Neurological Neurological ROS: abnormal movements, convulsions, memory loss, no confusion, no weakness - Psychiatric Psychiatric: change in appetite, no confusion - Constitutional Vitals: Temp Pulse Resp BP Pulse Ox 98.1 F 65 18 166/74 97 04/22/18 14:34 04/22/18 14:34 04/22/18 13:49 04/22/18 14:34 04/22/18 14:34 General appearance: Present: A&O X 3, answers questions appropriately Exam: . - Head Head exam: Present: atraumatic, normocephalic - Eye Eye exam: Present: normal appearance. Absent: scleral icterus - Respiratory Respiratory exam: Present: CTAB. Absent: accessory muscle use, rales, rhonchi, wheezes - Cardiovascular Cardiovascular exam: Present: RRR, +S1, +S2. Absent: diastolic murmur, gallop, rubs, systolic murmur - GI/Abdominal GI/Abdominal exam: Present: normal bowel sounds, soft, no peritoneal signs. Absent: distended, tenderness - Expanded Upper Extremities Exam Shoulder exam: Present: full ROM - Expanded Lower Extremities Exam Lower Leg exam: Present: swelling - Neurological Exam Neurological exam: Present: alert, oriented X3. Absent: pronater drift, facial droop, speech deficit Additional comments: Manufacturer'S Service Representative strenth intact - Psychiatric Psychiatric exam: Present: normal affect, normal mood Internal Med - H&P Results - Labs CBC & Chem 7: 04/22/18 09:45 04/22/18 09:45 Labs: Short CBC 04/22/18 Range/Units 09:45 WBC 9.4 D (4.3-11.1) K/mcL Hgb 15.2 (11.5-15.4) g/dL Hct 43.9 (35.3-44.9) % Plt Count 289 (140-400) K/mcL BMP 04/22/18 09:45 Sodium 129 L Potassium 3.8 Chloride 94 L Carbon Dioxide 17 L BUN 13 Creatinine 0.95 Glucose 162 H Calcium 9.1 Cardiac Enzymes 04/22/18 Range/Units 09:45 Troponin I < 0.03 (< 0.04) ng/mL Urine 04/22/18 Range/Units 11:02 Urine Color Yellow (Yellow) Urine Clarity Clear (Clear) Urine pH 7.5 (5.0-8.0) pH Units Ur Specific [place] 1.008 L (1.010-1.025) Urine Protein 30 H (Neg-Trace) mg/dL Urine Glucose (UA) 100 H (Normal) mg/dL - Impressions ITS Impressions Chest X-Ray 04/22/18 09:46 IMPRESSION: Bibasilar atelectasis. D/ / Yelena Ascencio MD / Yelena Ascencio MD Interpreting Provider: Yelena Ascencio MD Head CT 04/22/18 09:46 IMPRESSION: No acute intracranial abnormality. Moderate cerebral atrophy appropriate for age. [id number] chronic ischemic changes also age-appropriate. No significant change from the prior study. D/ / Ermias Jurado MD / Ermias Jurado MD Interpreting Provider: Ermias Jurado MD Cervical Spine CT 04/22/18 09:47 IMPRESSION: No acute abnormality of the cervical spine. Multilevel degenerative changes to the cervical spine. Diffuse bone demineralization. Right thyroid nodule measuring 1.8 x 1.5 cm. Recommend ultrasound evaluation on a nonemergent basis. D/ / 04/22/2018 10:37:39 Ham Babb MD / ana m Interpreting Provider: Ham Babb MD Head CTA 04/22/18 10:13 IMPRESSION: Mild, less than 50%, stenosis of the internal carotid arteries by NASCET criteria. No intracranial flow-limiting stenosis or aneurysm. Consider thyroid for evaluation if clinically warranted, a patient's age. RECOMMENDATIONS: 1.6 cm incidental thyroid nodule Recommend thyroid US if clinically warranted given patient age. Reference: J Am Trung Radiol. 2014;12(2): 143-50 D/ 04/22/2018 11:53:40 Sudheer Ascencio MD / ana m Interpreting Provider: Sudheer Ascencio MD Neck CTA 04/22/18 10:13 IMPRESSION: Mild, less than 50%, stenosis of the internal carotid arteries by NASCET criteria. No intracranial flow-limiting stenosis or aneurysm. Consider thyroid for evaluation if clinically warranted, a patient's age. RECOMMENDATIONS: 1.6 cm incidental thyroid nodule Recommend thyroid US if clinically warranted given patient age. Reference: J Am Trung Radiol. 2014;12(2): 143-50 D/ / 04/22/2018 11:53:40 Sudheer Ascencio MD / ana m Interpreting Provider: Sudheer Ascencio MD - Assessment and plan (1) Seizure-like activity Current Visit: Yes Status: Acute Assessment and plan: Patient had seizure like-activity as a passenger in a car (had urinary con tinence, contractures, foaming at the mouth, lip biting). Afterwards she had left-sided weakness immediately after with difficulty speaking. Her son reported in 2016 possible seizure-like activity d/t a UTI. In the ED, a stroke alert was called and [facility] neurologists used telemedicine to evaluate the patient. They report it's not a stroke and is more manufacturer's service representative as a seizure. Patient not on any anti-epileptics. No FMHx of seizures. Etiology: -Cause of the seizure is not undetermined. She does have hyponatremia, but this is chronic. No history of recent illness or fevers. Stroke ruled out by head CT, but MRI is pending to rule out posterior stroke. Head CT and CTA unremarkable for any acute intracranial process Cervical spine CT was unremarkable. Both cervical spine CT and neck CTA demon strated R thyroid nodule. Recommended US outpatient. Plan: -Neurology is following, recommended Keppra 500 BID -EEG and MRI of brain pending -Seizure precautions ordered -CK pending (2) Hyponatremia Current Visit: Yes Status: Chronic Assessment and plan: She has acute on chronic hyponatremia that is most likely hypovolemic. Sodium level upon admission was 129. Baseline sodium is 133-135. She has had decreased appetite, decreased oral intake, and she denies vomiting, diarrhea. In ED patient received 1L of normal saline IV fluids. Sodium level 132. Serum osmolality is 272 On exam, patient is A/Ox3 with no confusion or altered mental status. Plan: -Sodium has improved with 1L of normal saline she received in ED. -Goal to increase sodium levels by 6-8 mEq/24hrs-Repeat sodium level at 9:00pm. If sodium is lower, then give normal saline IV fluids at a rate of 50. We hope it will be improved with normal regular diet. -We will continue to monitor. (3) HTN (hypertension) Current Visit: No Status: Chronic Assessment and plan: Patient's BP was 173/140 upon admission, was likely secondary to seizure. BP is now at 128/78. Plan: -Will allow for permissive HTN since a stroke was considered and patient is still pending a MRI of brain to r/o posterior stroke. Head CT was negative for acute stroke. -Continue to hold home BP medications including nadalol and lisinopril. Qualifiers: Hypertension type: essential hypertension Qualified Code(s): I10 - Essential (primary) hypertension (4) Hypokalemia Current Visit: Yes Status: Acute Assessment and plan: Patient's potassium level was 3.8 admission Current level is 3.3 Plan: -Patient is being given 40 of KCl -Continue to monitor and supplement as needed (5) CKD (chronic kidney disease), stage III Current Visit: No Status: Chronic Assessment and plan: CKD stage 3 history appears baseline. Patient of Dr. Morillo GFR baseline 44-57 Creatinine baseline 0.9-1.1 Plan: -Will continue to monitor and will renal dose medications and avoid nephrotoxications (6) DVT prophylaxis Current Visit: Yes Status: Acute Assessment and plan: Heparin subQ (7) Back pain Current Visit: Yes Status: Acute Assessment and plan: Her son reported to us she fell 2 weeks ago and landed on her sacrum but not her head. Her PCP ordered imaging and we will review the results of the imaging when available. Qualifiers: Qualified Code(s): M54.9 - Dorsalgia, unspecified - Time Spent With Patient Total time spent is greater than 50% in coordination of care (as documented) at patient's floor/unit and/or counseling patient: <Mona Couch - Last Filed: 04/22/18 19:21> Date of Encounter: 04/22/18 Internal Medicine - H&P: HPI History of present illness: Ms. Rivera is a 83 year old female All Systems PM: A 10-system review of systems was performed and is negative for pertinent findings except as documented above in the HPI. - Constitutional Vitals: Temp Pulse Resp BP Pulse Ox 98.4 F 66 16 158/77 97 04/22/18 18:20 04/22/18 18:20 04/22/18 18:20 04/22/18 18:20 04/22/18 14:34 Internal Med - H&P Results - Labs CBC & Chem 7: 04/22/18 09:45 04/22/18 15:05 Labs: Short CBC 04/22/18 Range/Units 09:45 WBC 9.4 D (4.3-11.1) K/mcL Hgb 15.2 (11.5-15.4) g/dL Hct 43.9 (35.3-44.9) % Plt Count 289 (140-400) K/mcL BMP 04/22/18 04/22/18 09:45 15:05 Sodium 129 L 132 L Potassium 3.8 3.3 L Chloride 94 L 100 Carbon Dioxide 17 L 20 L BUN 13 12 Creatinine 0.95 0.75 Glucose 162 H 112 H Calcium 9.1 8.6 Cardiac Enzymes 04/22/18 Range/Units 09:45 Troponin I < 0.03 (< 0.04) ng/mL Urine 04/22/18 Range/Units 11:02 Urine Color Yellow (Yellow) Urine Clarity Clear (Clear) Urine pH 7.5 (5.0-8.0) pH Units Ur Specific [place] 1.008 L (1.010-1.025) Urine Protein 30 H (Neg-Trace) mg/dL Urine Glucose (UA) 100 H (Normal) mg/dL - Impressions ITS Impressions Chest X-Ray 04/22/18 09:46 IMPRESSION: Bibasilar atelectasis. D/ / Yelena Ascencio MD / Yelena Ascencio MD Interpreting Provider: Yelena Ascencio MD Head CT 04/22/18 09:46 IMPRESSION: No acute intracranial abnormality. Moderate cerebral atrophy appropriate for age. [id number] chronic ischemic changes also age-appropriate. No significant change from the prior study. D/ / Ermias Jurado MD / Ermias Jurado MD Interpreting Provider: Ermias Jurado MD Cervical Spine CT 04/22/18 09:47 IMPRESSION: No acute abnormality of the cervical spine. Multilevel degenerative changes to the cervical spine. Diffuse bone demineralization. Right thyroid nodule measuring 1.8 x 1.5 cm. Recommend ultrasound evaluation on a nonemergent basis. D/ / 04/22/2018 10:37:39 Ham Babb MD / ana m Interpreting Provider: Ham Babb MD Head CTA 04/22/18 10:13 IMPRESSION: Mild, less than 50%, stenosis of the internal carotid arteries by NASCET criteria. No intracranial flow-limiting stenosis or aneurysm. Consider thyroid for evaluation if clinically warranted, a patient's age. RECOMMENDATIONS: 1.6 cm incidental thyroid nodule Recommend thyroid US if clinically warranted given patient age. Reference: J Am Trung Radiol. 2014;12(2): 143-50 D/ 04/22/2018 11:53:40 Sudheer Ascencio MD / ana m Interpreting Provider: Sudheer Ascencio MD Neck CTA 04/22/18 10:13 IMPRESSION: Mild, less than 50%, stenosis of the internal carotid arteries by NASCET criteria. No intracranial flow-limiting stenosis or aneurysm. Consider thyroid for evaluation if clinically warranted, a patient's age. RECOMMENDATIONS: 1.6 cm incidental thyroid nodule Recommend thyroid US if clinically warranted given patient age. Reference: J Am Trung Radiol. 2014;12(2): 143-50 D/ /22/2018 11:53:40 Sudheer Ascencio MD / ana m Interpreting Provider: Sudheer Ascencio MD - Time Spent With Patient Total time spent is greater than 50% in coordination of care (as documented) at patient's floor/unit and/or counseling patient: - Attending Attestation The history, physical exam, and medical decision making was performed by medical chino Wheeler either while I was physically present and actively involved or I personally re-performed the exam and medical decision making. I have verified the accuracy of the medical student's documentation with regards to the history, physical exam findings, and medical decision making. Mrs Rivera presented to ED with episode of seizure like activity and unrespons iveness. She had neuro changes on initial presentation to ED with facial left side flaccid paralysis and only following commands on the right with stroke alert called. It was determined on eval by [facility] and with complete resolution of symptoms that she was post ictal from seizure and stroke alert cancelled. Neuro was consulted and keprra loaded with plan to cont keppra. She went for EEG that showed no seizure at this time. awake, resting in bed, no family present. body is generally sore and aching. no shoulder pain, did not bite tongue, did bite lip. no cp, sob, weakness, paralysis, numbness, tingling, no n/v. gen- alert, awake,appears stated age eyes- pupils equal round , eom intact cv- reg rate and rhythm, normal s1,s2, no murmurs appreciated lungs- ctabl, no wheezing, rhonchi or crackles, normal resp effort on ra abd- soft, non tender, non distended, + bs neuro- AAOx3, CN grossly intact, no focal deficits, strength 5/5 throughout Seizure like activity/Unresponsive episode Likely seizure, r/o cva, no apparent infectious etiology, no cardiovascular abnormalities yet noted Suspect less likely related to hyponatremia as she has it chronically so she is not far off her baseline - neuro following, cont keppra, eeg neg, seizure precautions -ct neg, mri pending to rule out cva and permissive htn at this time, tia/stroke protocol orders in palce until MRI results and confirms, asa, statin Hyponatremia- na 129 baseline appears to be 133-137, appears hypovolemic to euvolemic received NS bolus n ED we rechecked on admit and na is 132 -q6h bmps and if next check is low would begin NS 50 cc/hr and cont check to assure correcting at goal HTN- hold home meds at this time for permissive htn until mri results incidental thyroid nodule- tsh wnl, fu outpt for ultrasound
[2018-04-22 15:39] LABS: BUN/Creatinine Ratio 16 (6-26); Blood Urea Nitrogen 12 mg/dL (8-23); Calcium 8.6 mg/dL (8.6-10.3); Carbon Dioxide 20 mEq/L (23-29); Chloride 100 mEq/L (98-107); Glucose 112 mg/dL (70-105); Osmolality,Calculated 275 (280-300); Potassium 3.3 mEq/L (3.5-5.1); Sodium 132 mEq/L (136-145); eGFR For Non-African Americans > 60 (> 60)
[2018-04-22 16:16] LABS: Creatine Kinase 39 Units/L (30-223)
--- NOTE | 2018-04-22 16:20 | EEG/EMG/Oth Biometrics Report ---
EEG Procedure Report Date of procedure: 04/22/18 EEG Procedure: Routine EEG Procedure Note: This is a report of a 21 channel bipolar and referential montage EEG. The posterior dominant rhythm consisted of mixed beta frequency along with alpha frequencies. Significant myogenic artifact is also identified in the background however this does not preclude accurate interpretation of the study. As the study progresses and the patient relaxes states. Of drowsiness are identified as reference by dropout of posterior dominant rhythm which to sleep as evidenced by the presence of vertex activity K complexes and sleep spindles. Photic stimulations stimulation is performed and does not significantly alter the recording. Hyperventilation is not performed in recording. The EKG rhythm strip reveals normal sinus rhythm at 60 bpm. Impressions: This EEG recording is within normal limits. There is no evidence of epileptiform activity identified during the study. Comment: Beta frequencies are indeed recognized as a normal variant, however may also be reflective of a host of metabolic conditions, anxiety, and medication effect. A normal EEG does not preclude a diagnosis of seizure or epilepsy. Clinical suspicion for seizure activity is high, serial EEGs or perhaps a prolonged recording may increase the yield. Please correlate clinically.
[2018-04-22] MEDS: levETIRAcetam 250 MG TABLET PO SCH (16:31)
[2018-04-22] MEDS: *HR* Heparin 5,000 UNIT/ML VIAL SQ SCH (20:16)
[2018-04-22 22:08] LABS: BUN/Creatinine Ratio 15 (6-26); Blood Urea Nitrogen 11 mg/dL (8-23); Calcium 8.2 mg/dL (8.6-10.3); Carbon Dioxide 23 mEq/L (23-29); Chloride 101 mEq/L (98-107); Glucose 105 mg/dL (70-105); Osmolality,Calculated 276 (280-300); Potassium 3.5 mEq/L (3.5-5.1); Sodium 133 mEq/L (136-145); eGFR For Non-African Americans > 60 (> 60)
[2018-04-23 03:38] LABS: BUN/Creatinine Ratio 14 (6-26); Blood Urea Nitrogen 11 mg/dL (8-23); Calcium 8.2 mg/dL (8.6-10.3); Carbon Dioxide 21 mEq/L (23-29); Chloride 101 mEq/L (98-107); Glucose 123 mg/dL (70-105); Osmolality,Calculated 275 (280-300); Potassium 3.6 mEq/L (3.5-5.1); Sodium 132 mEq/L (136-145); eGFR For Non-African Americans > 60 (> 60)
[2018-04-23 03:39] LABS: Chol/HDL Ratio 2.1 (0-4.9); Cholesterol 109 mg/dL (< 200); HDL Cholesterol 52 mg/dL (40-59); LDL Cholesterol,Calculated 40 mg/dL (0-99); Triglycerides 87 mg/dL (< 150)
[2018-04-23 03:41] LABS: Troponin I < 0.03 ng/mL (< 0.04)
[2018-04-23] MEDS ORDERED: 0.9 % Sodium Chloride 1,000 ML IVC SCH (05:00)
[2018-04-23] MEDS: *HR* Heparin 5,000 UNIT/ML VIAL SQ SCH (05:31)
[2018-04-23] MEDS: levETIRAcetam 250 MG TABLET PO SCH (05:31)
[2018-04-23 06:33] LABS: Estimated Average Glucose 117 mg/dl; Hemoglobin A1C 5.7 %
[2018-04-23] MEDS ORDERED: Aspirin Enteric Coated 81 MG Tablet PO SCH (09:00)
[2018-04-23 09:38] LABS: BUN/Creatinine Ratio 13 (6-26); Blood Urea Nitrogen 11 mg/dL (8-23); Carbon Dioxide 23 mEq/L (23-29); Chloride 102 mEq/L (98-107); Glucose 193 mg/dL (70-105); Osmolality,Calculated 281 (280-300); Potassium 3.6 mEq/L (3.5-5.1); Sodium 133 mEq/L (136-145); eGFR For Non-African Americans > 60 (> 60)
--- NOTE | 2018-04-23 10:00 | Internal Med Progress Note ---
Hospitalist Progress Note - Encounter Date of Encounter: 04/23/18 Time of Encounter: 09:00 - Exam Vitals: Temp Pulse Resp BP Pulse Ox 98.0 F 60 16 146/70 94 04/23/18 06:41 04/23/18 05:33 04/23/18 06:41 04/23/18 06:41 04/23/18 06:41 - Assessment and Plan (1) Seizure-like activity Current Visit: Yes Status: Acute (2) Hyponatremia Current Visit: Yes Status: Chronic (3) HTN (hypertension) Current Visit: No Status: Chronic Assessment and Plan: Patient's blood pressure was 173/140 upon admission. BP now is 148/70 Plan: -Can return to taking BP medications since her MRI results were negative for a stroke. (4) Hypokalemia Current Visit: Yes Status: Acute (5) CKD (chronic kidney disease), stage III Current Visit: No Status: Chronic (6) DVT prophylaxis Current Visit: Yes Status: Acute (7) Back pain Current Visit: Yes Status: Acute Assessment and Plan: Follow-up with PCP for back pain management - Time Spent with Patient Total time spent is greater than 50% in coordination of care (as documented) at patient's floor/unit and/or counseling patient: Internal Medicine: Result - Labs CBC & Chem 7: 04/22/18 09:45 04/23/18 08:55 Labs: BMP 04/22/18 04/22/18 04/22/18 09:45 15:05 21:04 Sodium 129 L 132 L 133 L Potassium 3.8 3.3 L 3.5 Chloride 94 L 100 101 Carbon Dioxide 17 L 20 L 23 BUN 13 12 11 Creatinine 0.95 0.75 0.73 Glucose 162 H 112 H 105 Calcium 9.1 8.6 8.2 L 04/23/18 04/23/18 02:57 08:55 Sodium 132 L 133 L Potassium 3.6 3.6 Chloride 101 102 Carbon Dioxide 21 L 23 BUN 11 11 Creatinine 0.81 0.84 Glucose 123 H 193 H Calcium 8.2 L 8.0 L Cardiac Enzymes 04/22/18 04/23/18 Range/Units 09:45 02:57 Troponin I < 0.03 < 0.03 (< 0.04) ng/mL Urine 04/22/18 Range/Units 11:02 Urine Color Yellow (Yellow) Urine Clarity Clear (Clear) Urine pH 7.5 (5.0-8.0) pH Units Ur Specific [place] 1.008 L (1.010-1.025) Urine Protein 30 H (Neg-Trace) mg/dL Urine Glucose (UA) 100 H (Normal) mg/dL - ABG Interpretation ABG results: PT/INR, D-dimer PT 10.9 Seconds (9.4-12.1) 04/22/18 09:45 - Impressions Impressions Chest X-Ray 04/22/18 09:46 IMPRESSION: Bibasilar atelectasis. D/ / Yelena Ascencio MD / Yelena Ascencio MD Interpreting Provider: Yelena Ascencio MD Head CT 04/22/18 09:46 IMPRESSION: No acute intracranial abnormality. Moderate cerebral atrophy appropriate for age. [id number] chronic ischemic changes also age-appropriate. No significant change from the prior study. D/ / Ermias Jurado MD / Ermias Jurado MD Interpreting Provider: Ermias Jurado MD Cervical Spine CT 04/22/18 09:47 IMPRESSION: No acute abnormality of the cervical spine. Multilevel degenerative changes to the cervical spine. Diffuse bone demineralization. Right thyroid nodule measuring 1.8 x 1.5 cm. Recommend ultrasound evaluation on a nonemergent basis. D/ / 04/22/2018 10:37:39 Ham Babb MD / ana m Interpreting Provider: Ham Babb MD Head CTA 04/22/18 10:13 IMPRESSION: Mild, less than 50%, stenosis of the internal carotid arteries by NASCET criteria. No intracranial flow-limiting stenosis or aneurysm. Consider thyroid for evaluation if clinically warranted, a patient's age. RECOMMENDATIONS: 1.6 cm incidental thyroid nodule Recommend thyroid US if clinically warranted given patient age. Reference: J Am Trung Radiol. 2014;12(2): 143-50 D/ 04/22/2018 11:53:40 Sudheer Ascencio MD / ana m Interpreting Provider: Sudheer Ascencio MD Neck CTA 04/22/18 10:13 IMPRESSION: Mild, less than 50%, stenosis of the internal carotid arteries by NASCET criteria. No intracranial flow-limiting stenosis or aneurysm. Consider thyroid for evaluation if clinically warranted, a patient's age. RECOMMENDATIONS: 1.6 cm incidental thyroid nodule Recommend thyroid US if clinically warranted given patient age. Reference: J Am Trung Radiol. 2014;12(2): 143-50 D/ 04/22/2018 11:53:40 Sudheer Ascencio MD / ana m Interpreting Provider: Sudheer Ascencio MD Brain MRI 04/22/18 12:11 IMPRESSION: 1. No acute infarct or acute intracranial process identified. 2. Moderate chronic small vessel ischemic changes. 3. Diffuse cerebral volume loss. D/ / Darryl Palacio MD / Darryl Palacio MD Interpreting Provider: Darryl Palacio MD Consult Discharge Plan - Plan Referrals: Aleksandr Hernandez, DO [Primary Care Provider] - (3) HTN (hypertension) Qualifiers: Qualified Code(s): I10 - Essential (primary) hypertension (7) Back pain Qualifiers: Qualified Code(s): M54.9 - Dorsalgia, unspecified
[2018-04-23 10:28] LABS: Bilirubin,Urine Negative (Negative); Blood,Urine Negative (Negative); Clarity,Urine Clear (Clear); Color,Urine Yellow (Yellow); Glucose,Urine (UA) Normal (Normal); Ketones,Urine 15 mg/dL (Negative); Leukocyte Esterase,Urine Negative (Negative); Nitrite,Urine Negative (Negative); PH,Urine 6.5 pH Units (5.0-8.0); Protein,Urine Trace mg/dL (Neg-Trace); Specific Gravity,Urine 1.014 (1.010-1.025); Urobilinogen,Urine Normal (Normal)
[2018-04-23 10:30] LABS: Bacteria,Urine None Seen per hpf (None-Few); Hyaline Casts,Urine None Seen per lpf (None-Few); RBC,Urine 0-3 per hpf (0-3); Squamous Epithelial Cell,Urine Moderate per lpf (None-Few); WBC,Urine 0-3 per hpf (0-3)
--- NOTE | 2018-04-23 10:40 | Neurology Progress Note ---
<Jake Laboy - Last Filed: 04/23/18 10:48> Date of Encounter: 04/23/18 Time of Encounter: 10:15 Assessment and Plan (1) Seizure-like activity Current Visit: Yes Status: Acute Patient with new-onset epilepsy CT head revealed moderate cerebral atrophy appropriate for age. [id number] chronic ischemic changes also age-appropriate. CTA head/neck revealed mild, less than 50%, stenosis of the internal carotid arteries by NASCET criteria. No intracranial flow-limiting stenosis or aneurysm. MRI brain w/wo contrast revealed no acute infarct or acute intracranial process, moderate chronic small vessel ischemic changes, and diffuse cerebral volume loss. Patient had similar seizure-like episode in December 2016 but denies taking any anti-epileptic therapy. No obvious symptomatic etiology to explain this. Electrolytes were normal, vital signs are not extraordinarily out of the norm. EEG revealed no evidence of epileptiform activity. Patient was given a loading dose of Keppra in the ED Continue Keppra 500 mg PO BID Stable for discharge from a neurology standpoint. Please schedule follow up appointment with neurology in 1-2 weeks. (2) Hyponatremia Current Visit: Yes Status: Chronic (3) HTN (hypertension) Current Visit: No Status: Chronic (4) HLD (hyperlipidemia) Current Visit: No Status: Chronic (5) Hypothyroidism Current Visit: No Status: Chronic (6) CKD (chronic kidney disease), stage III Current Visit: No Status: Chronic (7) Hypokalemia Current Visit: Yes Status: Acute (8) DVT prophylaxis Current Visit: Yes Status: Acute Subjective Principal diagnosis: Seizure Interval history: Patient seen and examined resting comfortably in bed. Patient reports feeling much improved today and denies any further seizure activity. She has been tolerating Keppra 500mg PO BID and tolerating diet without difficulty. Patient has regained urinary continence and has not required fernandez placement. She is eager to return home today. Objective - Constitutional Vitals: Temp Pulse Resp BP Pulse Ox 98.0 F 60 18 146/70 94 04/23/18 06:41 04/23/18 09:38 04/23/18 09:38 04/23/18 06:41 04/23/18 06:41 General appearance: Present: cooperative, A&O X 3, no acute distress, answers questions appropriately - Head Head exam: Present: atraumatic, normocephalic - Eye Eye exam: Present: EOMI, PERRL, conjuntiva pink, sclera anicteric Pupils: Present: PERRL - Extremities Exam Extremities exam: Present: warm, radial pulses palpable and symmetrical. Absent: calf tenderness, cyanotic, pedal edema - Neurological Exam Sensorimotor examination: Present: intact Motor Examination: Present: full strength in all major muscle groups Motor examination - right side: 10/06: deltoids, biceps, triceps, direct care specialist, hip flexors, tibialis Anterior, quadriceps, toe extension (EHL), plantarflexion Motor examination - left side: 10/06: deltoids, biceps, triceps, hip flexors, direct care specialist, quadriceps, tibialis Anterior, toe extension (EHL), plantarflexion Sensation intact: Present: intact, light touch Reflex and gait examination: intact Mental Status Examination: Present: awake, alert, oriented to person, oriented to place, oriented to time, follows commands appropriately, answers questions appropriately, no agnosia, no aphasia, no aproxia Cranial nerve examination: Present: PERRL, EOMI, visual babcock intact, sensory to face intact, mastication intact, no facial asymmetry is present, no dysarthria, hearing is intact symmetrically, flexes SCM and trapezius muscles symmetrically with full power, tongue protrudes midline, no atrophy or facial f asiculations present Cerebellar examination: Present: no dysmetria, performs finger to nose and heel to [place] symmetrically without ataxia Results - Laboratory Findings CBC and BMP: 04/22/18 09:45 04/23/18 08:55 Abnormal lab findings: Abnormal lab results Sodium 133 mEq/L (136-145) L 04/23/18 08:55 Glucose 193 mg/dL (70-105) H 04/23/18 08:55 POC Glucose 166 mg/dL (70-99) H 04/22/18 09:42 Hemoglobin A1c 5.7 % (-5.6) H 04/23/18 02:57 Calcium 8.0 mg/dL (8.6-10.3) L 04/23/18 08:55 Venous Ioniz Calcium 1.05 mmol/L (1.15-1.35) L 04/22/18 10:44 Ur Specific [place] 1.008 (1.010-1.025) L 04/22/18 11:02 Urine Protein 30 mg/dL (Neg-Trace) H 04/22/18 11:02 Urine Glucose (UA) 100 mg/dL (Normal) H 04/22/18 11:02 Consult Discharge Plan - Plan Referrals: Aleksandr Hernandez DO [Primary Care Provider] - <Romie Santos Livier - Last Filed: 04/23/18 12:59> Date of Encounter: 04/23/18 Assessment and Plan (1) Seizure-like activity Current Visit: Yes Status: Acute As above. Upon suspicion is that she may have had a symptomatic seizure associated with a primary cardiac event versus onset epilepsy secondary to significant cortical atrophy. Her neurologic workup has been completed. EEG was normal. I agree with Keppra 500 mg twice a day. I will follow-up with her my office after discharge. Subjective Interval history: Chart was reviewed, the patient was seen and examined independently. Case was discussed with the neurology resident on service. I agree with his assessment as stated above. Patient was stable overnight without any other seizure activity. She is tolerating Keppra without difficulty. Objective - Constitutional Vitals: Temp Pulse Resp BP Pulse Ox 98.1 F 65 16 165/74 95 04/23/18 11:18 04/23/18 11:18 04/23/18 11:18 04/23/18 11:18 04/23/18 11:18 Results - Laboratory Findings CBC and BMP: 04/22/18 09:45 04/23/18 08:55 Abnormal lab findings: Abnormal lab results Sodium 133 mEq/L (136-145) L 04/23/18 08:55 Glucose 193 mg/dL (70-105) H 04/23/18 08:55 POC Glucose 133 mg/dL (70-99) H 04/23/18 11:22 Hemoglobin A1c 5.7 % (-5.6) H 04/23/18 02:57 Calcium 8.0 mg/dL (8.6-10.3) L 04/23/18 08:55 Venous Ioniz Calcium 1.05 mmol/L (1.15-1.35) L 04/22/18 10:44 Urine Ketones 15 mg/dL (Negative) H 04/23/18 09:32 Ur Squamous Epith Cells Moderate per lpf (None-Few) H 04/23/18 09:32
--- NOTE | 2018-04-23 10:49 | Discharge Summary ---
<Diana Walker - Last Filed: 04/23/18 16:06> Date of Encounter: 04/23/18 Hospital course: Ms. Rivera is a 83 year old female - Time Spent with Patient Total time spent providing and/or coordinating discharge services: - Discharge Medications Prescriptions: levETIRAcetam [Keppra] 500 mg PO Q12HR #60 tablet Home Medications: Aspirin [Lo-Dose Aspirin EC] 81 mg PO DAILY 08/06/16 [History] Levothyroxine [Synthroid] 100 mcg PO DAILY 08/06/16 [History] Lisinopril [Zestril] 20 mg PO BID 08/06/16 [History] Nitroglycerin [Nitrostat] 0.4 mg SL Q5MIN PRN 08/06/16 [History] Oxybutynin [Ditropan] 5 mg PO BID 08/06/16 [History] Potassium Chloride [K-Tab ER] 20 meq PO DAILY 08/06/16 [History] Simvastatin [Zocor] 40 mg PO HS 08/06/16 [History] Sertraline [Zoloft] 25 mg PO DAILY 12/08/16 [History] Calcium Citrate/Vitamin D3 [Calcium Citrate - Vit D Caplet] 1 each PO DAILY 03/17/17 [History] Cyanocobalamin (Vitamin B-12) [Vitamin B-12] 1,500 mcg PO SUTUTH 03/17/17 [History] Loratadine [Allergy Relief] 10 mg PO DAILY 03/17/17 [History] Acetaminophen [Pain Reliever] 500 - 1,000 mg PO Q6H PRN 04/22/18 [History] Amlodipine Besylate 5 mg PO DAILY 04/22/18 [History] Cranberry Fruit Extract [Cranberry] 500 mg PO DAILY 04/22/18 [History] Ergocalciferol (VITAMIN D2) [Vitamin D] 400 unit PO DAILY 04/22/18 [History] Nadolol [Corgard] 20 mg PO DAILY 04/22/18 [History] levETIRAcetam [Keppra] 500 mg PO Q12HR #60 tablet 04/23/18 [Rx] Allergies/Adverse Reactions: Allergy/AdvReac Type Severity Reaction Status Date / Time Amoxicillin Allergy Rash Verified 03/17/17 16:54 citalopram [From Celexa] Allergy See Verified 03/17/17 16:54 Comments codeine Allergy Rash Verified 03/17/17 16:54 NSAIDS (Non-Steroidal Allergy Rash Verified 03/17/17 16:54 Anti-Inflamma Oxycodone Allergy Rash Verified 03/17/17 16:54 Penicillins Allergy Hives Verified 03/17/17 16:54 piroxicam Allergy Rash Verified 03/17/17 16:54 propoxyphene Allergy Rash Verified 03/17/17 16:54 [From Darvocet-N] salicylates Allergy Rash Verified 03/17/17 16:54 Date of admission: 04/22/18 14:01 Primary care physician: Aleksandr Hernandez DO Consults: 04/22/18 12:07 Consult to Neurology [CONS] Stat Consulting Provider: [facility] Reason for Consult: seizure like activity Time Notified: 12:07 Call Completed: Yes 04/22/18 16:25 Consult to Interpret Exam [CONS] Routine Consulting Provider: Romie Santos Consult to Interpret Exam: Interpret EEG - Constitutional Vitals: Temp Pulse Resp BP Pulse Ox 98.3 F 64 18 181/69 94 04/23/18 14:51 04/23/18 14:51 04/23/18 14:51 04/23/18 14:51 04/23/18 14:51 - Patient Status Disposition: Home, Self-Care Condition: Fair Functional capacity at discharge: independent ambulation Overall status at discharge: patient is back to baseline - Discharge Instructions Follow Up With: Romie Santos DO [Partnered Physician] - Aleksandr Hernandez DO [Primary Care Provider] - (patient will need to call primary care provider within 5-7 business days. Due to the office being closed at time [facility] tried to schedule apt for the patient. ) Additional Instructions: -Follow up with Dr. Santos of neurology in 1-2weeks -take keppra as prescribed -follow up with your PCP in 1-2 weeks for your right thyroid nodule that was seen on CT scan of neck. Also follow up on your hyponatremia and back pain. -Return to the ED should you develop seizures. - Diet and Activity Activity: resume usual activities as tolerated Diet: advance to your usual diet <Naun Wheeler - Last Filed: 04/23/18 16:18> - NOTES TO OUTPATIENT PROVIDER Notes to Outpatient Provider: Patient admitted for a seizure. Stroke was ruled out via normal head CT and brain MRI. Neurology evaluated patient and EEG was normal. However, d/t high clinical suspicion of seizure, she was started on Keppra 500 BID. She will follow up with neurologist in 1-2 weeks. Also noted to be acute on chronic hyponatremia, which was improved back to baseline. She also had a thyroid nodule on the R side from the imaging - recommend US follow-up. Date of Encounter: 04/23/18 Time of Encounter: 09:00 - Discharge Diagnosis (1) Seizure-like activity Priority: Primary Status: Acute (2) Hyponatremia Priority: Secondary Status: Chronic (3) HTN (hypertension) Priority: Secondary Status: Chronic Qualifiers: Hypertension type: essential hypertension Qualified Code(s): I10 - Essential (primary) hypertension (4) Hypokalemia Priority: Secondary Status: Acute (5) CKD (chronic kidney disease), stage III Priority: Secondary Status: Chronic (6) DVT prophylaxis Priority: Secondary Status: Acute (7) Back pain Priority: Secondary Status: Acute Qualifiers: Qualified Code(s): M54.9 - Dorsalgia, unspecified; G89.29 - Other chronic pain Hospital course: Ms. Rivera is a 83 year old female who was admitted for seizure-like activity (foaming at the mouth, urinary incontinence, diffuse contractures, lip biting). She received a head CT and CTA which were unremarkable for any acute intracranial process. A cervical spine CT was also performed and was unr emarkable, but both this and a neck CTA demonstrated a R-sided thyroid nodule. Patient will follow up with her PCP in 1 week. She was evaluated via telemedicine by [facility] for a stroke, but they ruled this out and said it was more likely a seizure. An EEG and brain MRI were ordered - EEG was normal and brain MRI also ruled out a stroke. A CK level was ordered and was normal. Neurology was consulted and recommended Keppro 500mg BID. She will follow up with neurology in 2 weeks. Patient had acute on chronic hyponatremia of 129 when admitted, most likely being hypovolemic. Her baseline sodium levels are 133-135, and she received 1L of IV normal saline in the ED. The goal was to increase her sodium levels by 6-8 mEq/24hrs, and a BMP was checked every 6hrs. She received IV normal saline at a rate of 50mls/hr. Her sodium levels to eventually return back to baseline. Patient had HTN upon admission of 173/140, which was likely secondary to the seizure. It gradually lowered to 128/78 without intervention or medication. Her BP medications were held for the results of the MRI to return. Patient eventually developed hypokalemia after admission. She was 3.8 at admission, but went down to 3.3 for which she was given 40 meq of KCl which returned her K+ levels back to normal. Patient has CKD stage 3 that appears to be baseline. Patient received heparin subQ for DVT prophylaxis. Patient also complained of back pain. Her son reports 2 weeks ago she fell, landing on her sacrum but not her head, and patient completed imaging the morning of her admission day. She developed the seizure on the car ride back from completing the X-rays. All was discussed with patient w/o further questions. Advised the patient to take Keppra 500mg BID and to follow up with her neurologist in 1-2 weeks. Arline ent was told to see her PCP in 1-2 weeks for the R-sided thyroid nodule found on imaging, as well as her back pain and hyponatremia. During her admission, she did not have any other seizures. She was alert and oriented x 3, and stated a clear understanding of the treatment and plan. She was told to return to the hospital in case she develops fevers, chills, seizures, or confusion. Discharge discussed with: patient - Time Spent with Patient Total time spent providing and/or coordinating discharge services: Greater than 30 minutes Date of admission: 04/22/18 14:01 Primary care physician: Aleksandr Hernandez DO Consults: 04/22/18 12:07 Consult to Neurology [CONS] Stat Consulting Provider: [facility] Reason for Consult: seizure like activity Time Notified: 12:07 Call Completed: Yes 04/22/18 16:25 Consult to Interpret Exam [CONS] Routine Consulting Provider: Romie Santos Consult to Interpret Exam: Interpret EEG Discharging clinician: Dwayne Rivera Anticipated date of discharge: 04/23/18 - Constitutional Vitals: Temp Pulse Resp BP Pulse Ox 98.0 F 60 18 146/70 94 04/23/18 06:41 04/23/18 09:38 04/23/18 09:38 04/23/18 06:41 04/23/18 06:41 General appearance: Present: A&O X 3, answers questions appropriately Exam: . - Head Head exam: Present: atraumatic, normocephalic - Eye Eye exam: Present: normal appearance, scleral icterus - Respiratory Respiratory exam: Present: CTAB. Absent: accessory muscle use, rales, rhonchi, wheezes - Cardiovascular Cardiovascular exam: Present: RRR, +S1, +S2. Absent: diastolic murmur, gallop, rubs, systolic murmur - GI/Abdominal GI/Abdominal exam: Present: normal bowel sounds, soft, no peritoneal signs. Absent: distended, tenderness - Expanded Upper Extremities Exam Shoulder exam: Present: full ROM - Expanded Lower Extremities Exam Lower Leg exam: Present: swelling - Neurological Exam Neurological exam: Present: alert, oriented X3. Absent: pronater drift, facial droop, speech deficit <Dwayne Rivera - Last Filed: 04/23/18 16:52> Date of Encounter: 04/23/18 - Discharge Diagnosis (1) Grand mal status, epileptic Priority: Primary Status: Acute (2) Back pain Status: Acute Qualifiers: Back pain location: low back pain Back pain laterality: midline Sciatica presence: without sciatica Qualified Code(s): M54.5 - Low back pain; G89.29 - Other chronic pain (3) Hyponatremia Status: Chronic (4) CKD (chronic kidney disease), stage III Status: Chronic (5) HLD (hyperlipidemia) Priority: Secondary Status: Chronic Qualifiers: Hyperlipidemia type: mixed hyperlipidemia Qualified Code(s): E78.2 - Mixed hyperlipidemia (6) HTN (hypertension) Status: Chronic Qualifiers: Hypertension type: essential hypertension Qualified Code(s): I10 - Essential (primary) hypertension (7) Hypothyroidism Priority: Secondary Status: Chronic Qualifiers: Hypothyroidism type: acquired Qualified Code(s): E03.9 - Hypothyroidism, unspecified Hospital course: Ms. Rivera is a 83 year old female - Time Spent with Patient Total time spent providing and/or coordinating discharge services: 38min Date of admission: 04/22/18 14:01 Primary care physician: Aleksandr Hernandez DO Consults: 04/22/18 12:07 Consult to Neurology [CONS] Stat Consulting Provider: [facility] Reason for Consult: seizure like activity Time Notified: 12:07 Call Completed: Yes 04/22/18 16:25 Consult to Interpret Exam [CONS] Routine Consulting Provider: Romie Santos Consult to Interpret Exam: Interpret EEG - Constitutional Vitals: Temp Pulse Resp BP Pulse Ox 98.3 F 64 18 181/69 94 04/23/18 14:51 04/23/18 14:51 04/23/18 14:51 04/23/18 14:51 04/23/18 14:51 - Attending Attestation The history, physical exam, and medical decision making was performed by the medical student either while I was physically present and actively involved or I personally re-performed the exam and medical decision making. I have verified the accuracy of the medical student's documentation with regards to the history, physical exam findings, and medical decision making on 04/23/18. Ms Rivera has been hospitalized for apparent grand mal seizure. This has happened before and this time she has been placed on Keppra. No further issues noted. At this time she is afebrile and at baseline. She is ready for discharge to home with outpatient follow up. Exam Alert. Comfortable at rest Mucus membranes dry Heart reg and not tachy No wheeze abd soft and nontender No edema Moves all extremities. No tremor. I/P 1. Grand mal seizure - discharging on Keppra 2. HTN cont home meds 3. Hyponatremia - chronic 4. Hypokalemia resolved 5. DM with CKD 3 D/C home today.
[2018-04-23] MEDS ORDERED: Acetaminophen 325 MG TABLET PO PRN (14:00)
--- NOTE | 2018-04-23 14:03 | Electrocardiograph Report ---
[address] [place], [place] [address] Test Date: 2018-04-22 Pat Name: Linda Rivera Department: [id number] Room: [id number] Gender: F Fiscal Analyst: : [id number] Requested By: Daniel Chua Order Number: [id number] Reading MD: Shaniqua Michael Measurements Intervals [place] Rate: 91 P: 71 [place]: 215 QRS: -28 QRSD: 106 T: 86 QT: 359 QTc: 443 Interpretive Statements Sinus rhythm Borderline left axis deviation Nonspecific T abnormalities Electronically Signed On 04-23-2018 14:02:03 EST by Shaniqua Michael
[2018-04-23] MEDS ORDERED: amLODIPine 5 MG TABLET PO SCH (14:15)
[2018-04-23 15:03] VITALS: BP 181/69
== END 2018-04-23 17:42 | disposition home or self-care (01) | DRG 101 ==
LOC: 2NENU 09:39 → EMEROOARM 09:39 → SUATTDRO 14:01 → 2NENU 14:17
PROVIDERS: ADMIT Internal Medicine; ATTEND Internal Medicine